=== PATIENT | male | born 1955 | race Caucasian/White ===

== ENCOUNTER 2019-11-24 13:50 | Emergency (ER) | payer MEDICARE, SELFPAY ==
[2019-11-24 14:08] VITALS: BP 149/74; PULSE 77; RESP 18; TEMP 37.4; O2SAT 100
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
== END 2019-11-24 14:55 | disposition home or self-care (01) ==
PROVIDERS: Emergency Provider Nurse Practitioner; PCP Internal Medicine
DX: L91.0 Hypertrophic scar (principal); K74.60 Unspecified cirrhosis of liver; I10 Essential (primary) hypertension; K21.9 Gastro-esophageal reflux disease without esophagitis
CPT/HCPCS: 99211; G0463

== ENCOUNTER 2021-02-28 10:26 | Emergency (ER) | payer MEDICARE, SELFPAY ==
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
[2021-02-28 10:35] VITALS: BP 116/65; PULSE 68; RESP 16; TEMP 36.5; O2SAT 100
[2021-02-28 10:44] VITALS: BP 116/65; PULSE 68; RESP 16; TEMP 36.5; O2SAT 100
--- NOTE | 2021-02-28 10:51 | PC.NURSE ---
PT DECLINED ICE FOR COMFORT
== END 2021-02-28 11:05 | disposition home or self-care (01) ==
PROVIDERS: Emergency Provider Nurse Practitioner Family; PCP Internal Medicine
DX: M19.042 Primary osteoarthritis, left hand (principal); K21.9 Gastro-esophageal reflux disease without esophagitis; I10 Essential (primary) hypertension; K74.60 Unspecified cirrhosis of liver; F41.9 Anxiety disorder, unspecified; F32.9 Major depressive disorder, single episode, unspecified
CPT/HCPCS: 73130; 99213; G0463